=== PATIENT | male | born 1995 | race Caucasian/White ===

== ENCOUNTER 2018-12-15 17:22 | Emergency (ER) | payer OTHER ==
[2018-12-15 17:46] VITALS: BP 136/85; PULSE 88; RESP 18; TEMP 98.6; O2SAT 99
--- NOTE | 2018-12-15 18:08 | ED PDOC ---
Upper Extremity Pain/Injury Time Seen by Provider: 12/15/18 18:04 Chief Complaint (Nursing): Trauma Chief Complaint (Provider): Right hand injury History Per: Patient History/Exam Limitations: no limitations Onset/Duration Of Symptoms: Days (x2) Current Symptoms Are (Timing): Still Present Additional Complaint(s): 23 year old left hand dominant male presents to the ED after punching a door yesterday. Patient reports pain along the ulnar aspect of the right hand. He states he has fractured it in the past. PMD: none provided Past Medical History Reviewed: Historical Data, Nursing Documentation, Vital Signs Vital Signs: Last Vital Signs Temp 98.6 F 12/15/18 17:45 Pulse 88 12/15/18 17:45 Resp 18 12/15/18 17:45 BP 136/85 12/15/18 17:45 Pulse Ox 99 12/15/18 17:45 - Medical History PMH: No Chronic Diseases - Surgical History Surgical History: No Surg Hx - Family History Family History: States: Unknown Family Hx - Home Medications Home Medications: Ambulatory Orders Medication Instructions Recorded Naproxen 375 mg PO Q8 PRN #21 tablet 12/15/18 - Allergies Allergies/Adverse Reactions: Allergies Allergy/AdvReac Type Severity Reaction Status Date / Time Penicillins Allergy RASH Verified 12/15/18 17:45 Review of Systems ROS Statement: Except As Marked, All Systems Reviewed And Found Negative Musculoskeletal: Positive for: Hand Pain (right) Physical Exam - Reviewed Nursing Documentation Reviewed: Yes Vital Signs Reviewed: Yes - Physical Exam Appears: Positive for: Non-toxic, No Acute Distress Head Exam: Positive for: ATRAUMATIC, NORMOCEPHALIC Skin: Positive for: Normal Color, Warm, Dry Eye Exam: Positive for: Normal appearance Neck: Positive for: Normal, Painless ROM Cardiovascular/Chest: Positive for: Regular Rate, Rhythm Respiratory: Positive for: Normal Breath Sounds. Negative for: Wheezing, Respiratory Distress Extremity: Positive for: Normal ROM, Swelling (Mild swelling noted along the ulnar aspect of the right hand) Neurologic/Psych: Positive for: Alert, Oriented. Negative for: Motor/Sensory Deficits - ECG O2 Sat by Pulse Oximetry: 99 (RA) Pulse Ox Interpretation: Normal - Progress ED Course And Treament: Xry of hand: fx of fifth metacarpal nondisplaced oblique. Motrin 600mg x 1 dose d/w Dr. Zamarripa. Patient to be place in [facility] gutter splint and call office Monday for appt Monday or Monday Medical Decision Making Medical Decision Making: Initial Impression: Right hand pain Initial Plan: --Ibuprofen 600mg PO --Right hand X-ray ------ Scribe Attestation: Documented by Antony Kelly acting as a scribe for Mary MOORE. Provider Scribe Attestation: All medical record entries made by the Scribe were at my direction and personally dictated by me. I have reviewed the chart and agree that the record accurately reflects my personal performance of the history, physical exam, medical decision making, and the department course for this patient. I have also personally directed, reviewed, and agree with the discharge instructions and disposition. Disposition - Clinical Impression Clinical Impression: Boxers fracture - Patient ED Disposition Is Patient to be Admitted: No - Disposition Disposition: Routine/Home Disposition Time: 19:41 Condition: STABLE Prescriptions: Naproxen 375 mg PO Q8 PRN #21 tablet PRN Reason: Pain, Moderate (4-7) Instructions: Boxer's Fracture
--- NOTE | 2018-12-16 10:55 | RAD ---
PROCEDURE: Right Hand Radiographs. HISTORY: HAND INJURY COMPARISON: None. FINDINGS: BONES: Acute fracture of the midshaft right 5th metacarpal. Major fracture fragments are anatomically aligned. JOINTS: Normal. No osteoarthritic changes. SOFT TISSUES: Soft tissue swelling attests to the acuity of the fracture. OTHER FINDINGS: None. IMPRESSION: Acute fracture right 5th metacarpal.
== END 2018-12-15 20:15 | disposition home or self-care (01) ==
LOC: H.ER 17:22
DX: S69.91XA Unspecified injury of right wrist, hand and finger(s), initial encounter (principal); W22.09XA Striking against other stationary object, initial encounter; Z88.0 Allergy status to penicillin